=== PATIENT | male | born 1965 | race Two or more races ===

== ENCOUNTER 2024-03-21 10:25 | Outpatient (AMB) | payer MEDICAID, SELFPAY ==
[2024-03-21 10:48] VITALS: BP 127/78; PULSE 95; RESP 18; TEMP 36.5; O2SAT 98; BMI 29.9
--- NOTE | 2024-03-21 10:48 | PD.ORTHCLVIS ---
Vital signs 03/21/24 10:48 Height 1.68 m Height Method Stated Weight 84.368 kg Weight Measurement Method Standing Scale BMI 29.9 BP 127/78 Blood Pressure Source Automatic Cuff Blood Pressure Location Right Upper Arm Position Sitting Respiration 18 Pulse 95 Pulse Source Monitor Temp 97.7 F Temp Source Temporal Artery Scan Pulse Oximetry (%) 98 Oxygen Delivery Method Room Air Med/Allergies Allergies & Medications Allergies No Known Allergies Allergy (Verified 03/21/24 10:55) Medication Reconciliation benazepril 10 mg tablet 10 mg PO QDAY 03/10/24 [History Confirmed 03/21/24] dapagliflozin propanediol 5 mg tablet (Farxiga) 5 mg PO QDAY 03/10/24 [History Confirmed 03/21/24] hydrocodone 10 mg-acetaminophen 325 mg tablet 1 tab PO BID PRN Pain 03/10/24 [History Confirmed 03/21/24] metformin 1,000 mg tablet 1,000 mg PO BID 03/10/24 [History Confirmed 03/21/24] semaglutide 0.25 mg or 0.5 mg (2 mg/3 mL) subcutaneous pen injector (Ozempic) 0.5 mg subcut QWEEK 03/10/24 [History Confirmed 03/21/24] acetaminophen 500 mg tablet (Acetaminophen Extra Strength) 1,000 mg (2 x 500 mg) PO Q6H PRN pain #90 tabs 03/16/24 [Rx Confirmed 03/21/24] aspirin 81 mg tablet,delayed release 81 mg PO BID #60 tabs 03/16/24 [Rx Confirmed 03/21/24] doxycycline hyclate 100 mg tablet 100 mg PO BID #14 tabs 03/16/24 [Rx Confirmed 03/21/24] gabapentin 300 mg capsule 300 mg PO .qhs #30 caps 03/16/24 [Rx Confirmed 03/21/24] sennosides 8.6 mg-docusate sodium 50 mg tablet (Senna-S) 1 tab-cap PO QDAY #30 tabs 03/16/24 [Rx Confirmed 03/21/24] cyclobenzaprine 5 mg tablet 5 mg PO TID PRN muscle spasm #60 tabs 03/21/24 [Rx Confirmed 03/21/24] ibuprofen 800 mg tablet 800 mg PO Q8H PRN pain #60 tabs 03/21/24 [Rx Confirmed 03/21/24] oxycodone 5 mg tablet 5 mg PO Q6H PRN pain #28 tabs 03/21/24 [Rx Confirmed 03/21/24] Subjective Visit Visit for: follow up visit and hip (LEFT) Immunization / Flu Flu Vaccine in the Last 12 Months: No Flu Vaccine Exclusion Criteria: No Exclusion Criteria History of Present Illness Chief complaint: Left hip pain Marc is a pleasant 58-year-old male status post left total hip replacement. He had some pain we brought him in. We discussed that the pain is more than he thought. He is able to walk Pain Pain level (0-10): 5 Pain duration: ALL DAY Pain location: inside (medial) Pain quality: aching Pain timing: night and increases with activity Associated signs & symptoms: numbness and stiffness Ambulatory data Ambulatory device: walker Treatments Improvement with previous injections: No Improvement with PT: No Improvement with NSAIDS: no Review of Systems Review of Systems: All systems negative unless otherwise noted in HPI. Exam Exam Patient is in no acute distress and is cooperative with the examination today. Patient has a normal mood and affect. Breathing is nonlabored. In no respiratory distress. Bilateral extremities were evaluated and demonstrates sensation intact to light touch. Palpable pedal pulses are present. No significant edema is present. Left hip incision is clean dry and intact. He has minimal pain with logroll Lower legs are equal Assessment and Plan Problem List (1) Pain in left hip: Status: Acute (2) Avascular necrosis of bone of left hip: Status: Acute Plan: Patient is doing well status post left total hip replacement. He is doing fine after left total hip replacement. We gave him refills and started him on a muscle relaxer. His legs are equal. Will get new x-rays. We will see him in 1 week as scheduled Office Procedures GNS Level of Care Nursing/Assessment Patient Status: Established Patient Nursing Assessment/Reassesment: Medication Reconciliation, Update PMH in EMR and Vital Signs Coordination of Care: Complex Care and Chronic Disease 1-5, Education Complex Pt/Fam, Consent,records obtained, informed consent, Results/Orders obtained and Staff clarify orders Special Needs: Language special needs Established Patient Charge Established Patient Point Assignment: 95 Established Patient Point Charge: EP Level 3 (80-115) Past Medical History Past Medical History Have you ever been diagnosed with any of the following: Neurological Problems Seizures: No Cardiology Problems Congestive Heart Failure: No Hypertension: Yes Respiratory Problems Chronic Obstructive Pulmonary Disease (COPD): No Smoking: No Smoking Exposure: No Stomache/Intestinal Problems Hepatitis: No Genital/Urinary Problems Renal Disease: No Musculoskeletal Problems Arthritis: Yes Endocrine Problems Diabetes Mellitus Type 1: No Diabetes Mellitus Type 2: Yes Other Problems Hospitalization: No Shingles: No Blood Transfusions: No Blood Transfusion Reaction: No Anesthesia Reactions: No Organ Transplant: No MRSA: No Chicken Pox: Yes Measles: Yes Mumps: Yes Clostridium Difficile: No Cancer: No
== END 2024-03-21 10:45 | disposition home or self-care (01) ==
LOC: HODSRG 10:25
PROVIDERS: PCP Physician Assistant; Referring Provider Physician Assistant; Supervising Provider Orthopaedic Surgery Adult Reconstructive Orthopaedic Surgery; Visit Provider Orthopaedic Surgery Adult Reconstructive Orthopaedic Surgery
DX: M25.552 Pain in left hip (principal); M87.88 Other osteonecrosis, other site; Z96.642 Presence of left artificial hip joint; I10 Essential (primary) hypertension
CPT/HCPCS: 99213; G0463

== ENCOUNTER 2024-03-31 13:21 | Outpatient (AMB) | payer MEDICAID, SELFPAY ==
[2024-03-31 13:35] VITALS: BP 121/74; PULSE 79; RESP 18; TEMP 36.1; O2SAT 97; BMI 31.0
--- NOTE | 2024-03-31 13:35 | PD.ORTHCLVIS ---
Vital signs 03/31/24 13:35 Height 1.68 m Height Method Stated Weight 87.628 kg Weight Measurement Method Standing Scale BMI 31.0 BP 121/74 Blood Pressure Source Automatic Cuff Blood Pressure Location Right Upper Arm Position Sitting Respiration 18 Pulse 79 Pulse Source Monitor Temp 97.0 F Temp Source Temporal Artery Scan Pulse Oximetry (%) 97 Oxygen Delivery Method Room Air Med/Allergies Allergies & Medications Allergies No Known Allergies Allergy (Verified 03/31/24 13:36) Medication Reconciliation benazepril 10 mg tablet 10 mg PO QDAY 03/10/24 [History Confirmed 03/31/24] dapagliflozin propanediol 5 mg tablet (Farxiga) 5 mg PO QDAY 03/10/24 [History Confirmed 03/31/24] hydrocodone 10 mg-acetaminophen 325 mg tablet 1 tab PO BID PRN Pain 03/10/24 [History Confirmed 03/31/24] metformin 1,000 mg tablet 1,000 mg PO BID 03/10/24 [History Confirmed 03/31/24] semaglutide 0.25 mg or 0.5 mg (2 mg/3 mL) subcutaneous pen injector (Ozempic) 0.5 mg subcut QWEEK 03/10/24 [History Confirmed 03/31/24] aspirin 81 mg tablet,delayed release 81 mg PO BID #60 tabs 03/16/24 [Rx Confirmed 03/31/24] doxycycline hyclate 100 mg tablet 100 mg PO BID #14 tabs 03/16/24 [Rx Confirmed 03/31/24] gabapentin 300 mg capsule 300 mg PO .qhs #30 caps 03/16/24 [Rx Confirmed 03/31/24] sennosides 8.6 mg-docusate sodium 50 mg tablet (Senna-S) 1 tab-cap PO QDAY #30 tabs 03/16/24 [Rx Confirmed 03/31/24] cyclobenzaprine 5 mg tablet 5 mg PO TID PRN muscle spasm #60 tabs 03/21/24 [Rx Confirmed 03/31/24] ibuprofen 800 mg tablet 800 mg PO Q8H PRN pain #60 tabs 03/21/24 [Rx Confirmed 03/31/24] acetaminophen 500 mg tablet (Acetaminophen Extra Strength) 1,000 mg (2 x 500 mg) PO Q6H PRN pain #90 tabs 03/23/24 [Rx Confirmed 03/31/24] oxycodone 5 mg tablet 5 mg PO Q6H PRN pain #28 tabs 03/31/24 [Rx] Subjective Visit Visit for: follow up visit and hip (LEFT) Immunization / Flu Flu Vaccine in the Last 12 Months: No Flu Vaccine Exclusion Criteria: Refused by Patient History of Present Illness Chief complaint: FOLLOW UP LEFT HIP TKA Patient is 2 weeks status post left total hip replacement. His incision looks great. He reports the pain is subsided quite a bit. He is walking with a walker very comfortably Pain Pain level (0-10): 2 Pain duration: ON/OFF Pain location: inside (medial) Pain quality: aching Ambulatory data Ambulatory device: walker Treatments Improvement with previous injections: No Improvement with PT: No Improvement with NSAIDS: no Review of Systems Review of Systems: All systems negative unless otherwise noted in HPI. Exam Exam Patient is in no acute distress and is cooperative with the examination today. Patient has a normal mood and affect. Breathing is nonlabored. In no respiratory distress. Bilateral extremities were evaluated and demonstrates sensation intact to light touch. Palpable pedal pulses are present. No significant edema is present. Left hip incision is clean dry and intact. He has minimal pain with logroll Lower legs are equal Assessment and Plan Problem List (1) Pain in left hip: Status: Acute (2) Avascular necrosis of bone of left hip: Status: Acute Plan: Patient is doing well status post left total hip replacement. He is doing fine after left total hip replacement. The patient is doing well and we gave him a refill on his pain medication. He should start outpatient physical therapy and we will see him in 4 to 6 weeks. In 4 Office Procedures GNS Level of Care Nursing/Assessment Patient Status: Established Patient Nursing Assessment/Reassesment: Medication Reconciliation, Update PMH in EMR and Vital Signs Coordination of Care: Complex Care and Chronic Disease 1-5, Education Complex Pt/Fam, Consent,records obtained, informed consent, 1 Ins Authorization, Results/Orders obtained and Staff clarify orders Special Needs: Language special needs Established Patient Charge Established Patient Point Assignment: 110 Established Patient Point Charge: EP Level 3 (80-115) Past Medical History Past Medical History Have you ever been diagnosed with any of the following: Neurological Problems Seizures: No Cardiology Problems Congestive Heart Failure: No Hypertension: Yes Respiratory Problems Chronic Obstructive Pulmonary Disease (COPD): No Smoking: No Smoking Exposure: No Stomache/Intestinal Problems Hepatitis: No Genital/Urinary Problems Renal Disease: No Musculoskeletal Problems Arthritis: Yes Endocrine Problems Diabetes Mellitus Type 1: No Diabetes Mellitus Type 2: Yes Other Problems Hospitalization: No Shingles: No Blood Transfusions: No Blood Transfusion Reaction: No Anesthesia Reactions: No Organ Transplant: No MRSA: No Chicken Pox: Yes Measles: Yes Mumps: Yes Clostridium Difficile: No Cancer: No
== END 2024-03-31 14:01 | disposition home or self-care (01) ==
LOC: HODSRG 13:21
PROVIDERS: PCP Physician Assistant; Referring Provider Physician Assistant; Supervising Provider Orthopaedic Surgery Adult Reconstructive Orthopaedic Surgery; Visit Provider Orthopaedic Surgery Adult Reconstructive Orthopaedic Surgery
DX: M25.552 Pain in left hip (principal); M87.88 Other osteonecrosis, other site; Z96.652 Presence of left artificial knee joint; I10 Essential (primary) hypertension
CPT/HCPCS: 99213; G0463

== ENCOUNTER → 2024-05-05 | Outpatient (CLI) | payer MEDICAID, SELFPAY ==
--- NOTE | 2024-05-05 | XR_ITS ---
Examination:Left hip AP, lateral, AP pelvis 3 views Technique: Hip AP lateral, AP pelvis, 3 views Exam date and time:May 05, 2024 1324 hours INDICATIONS: Status post left hip replacement 2 months ago FINDINGS: Moderate osteopenia Total left arthroplasty. Satisfactory alignment No definitive the prosthetic components Mild to moderate right hip osteoarthritis bones of the pelvis intact IMPRESSION: Total left hip arthroplasty with satisfactory alignment.
== END | disposition home or self-care (01) ==
PROVIDERS: PCP Physician Assistant; Referring Provider Orthopaedic Surgery Adult Reconstructive Orthopaedic Surgery; Visit Provider Orthopaedic Surgery Adult Reconstructive Orthopaedic Surgery
DX: M16.12 Unilateral primary osteoarthritis, left hip (principal); Z96.642 Presence of left artificial hip joint
CPT/HCPCS: 73502

== ENCOUNTER 2024-05-12 08:38 | Outpatient (AMB) | payer MEDICAID, SELFPAY ==
[2024-05-12 09:07] VITALS: BP 153/82; PULSE 70; RESP 18; TEMP 36.3; O2SAT 94; BMI 30.1
--- NOTE | 2024-05-12 09:07 | PD.ORTHCLVIS ---
Vital signs 05/12/24 09:07 Height 1.68 m Height Method Stated Weight 84.935 kg Weight Measurement Method Standing Scale BMI 30.1 BP 153/82 H Blood Pressure Source Automatic Cuff Blood Pressure Location Left Upper Arm Position Sitting Respiration 18 Pulse 70 Pulse Source Monitor Temp 97.3 F Temp Source Temporal Artery Scan Pulse Oximetry (%) 94 L Oxygen Delivery Method Room Air Med/Allergies Allergies & Medications Allergies No Known Allergies Allergy (Verified 05/12/24 09:10) Medication Reconciliation benazepril 10 mg tablet 10 mg PO QDAY 03/10/24 [History Confirmed 05/12/24] dapagliflozin propanediol 5 mg tablet (Farxiga) 5 mg PO QDAY 03/10/24 [History Confirmed 05/12/24] hydrocodone 10 mg-acetaminophen 325 mg tablet 1 tab PO BID PRN Pain 03/10/24 [History Confirmed 05/12/24] metformin 1,000 mg tablet 1,000 mg PO BID 03/10/24 [History Confirmed 05/12/24] semaglutide 0.25 mg or 0.5 mg (2 mg/3 mL) subcutaneous pen injector (Ozempic) 0.5 mg subcut QWEEK 03/10/24 [History Confirmed 05/12/24] aspirin 81 mg tablet,delayed release 81 mg PO BID #60 tabs 03/16/24 [Rx Confirmed 05/12/24] doxycycline hyclate 100 mg tablet 100 mg PO BID #14 tabs 03/16/24 [Rx Confirmed 05/12/24] gabapentin 300 mg capsule 300 mg PO .qhs #30 caps 03/16/24 [Rx Confirmed 05/12/24] sennosides 8.6 mg-docusate sodium 50 mg tablet (Senna-S) 1 tab-cap PO QDAY #30 tabs 03/16/24 [Rx Confirmed 05/12/24] cyclobenzaprine 5 mg tablet 5 mg PO TID PRN muscle spasm #60 tabs 03/21/24 [Rx Confirmed 05/12/24] ibuprofen 800 mg tablet 800 mg PO Q8H PRN pain #60 tabs 03/21/24 [Rx Confirmed 05/12/24] acetaminophen 500 mg tablet (Acetaminophen Extra Strength) 1,000 mg (2 x 500 mg) PO Q6H PRN pain #90 tabs 03/23/24 [Rx Confirmed 05/12/24] oxycodone 5 mg tablet 5 mg PO Q6H PRN pain #28 tabs 03/31/24 [Rx Confirmed 05/12/24] Exam Exam Patient is in no acute distress and is cooperative with the examination today. Patient has a normal mood and affect. Breathing is nonlabored. In no respiratory distress. Bilateral extremities were evaluated and demonstrates sensation intact to light touch. Palpable pedal pulses are present. No significant edema is present. Left hip incision is clean dry and intact. He has minimal pain with logroll Leg lengths are equal X-rays from 05/05/2024 Demonstrates a cementless total Hip replacement in good alignment position Assessment and Plan Problem List (1) Pain in left hip: Status: Acute Plan: Patient is doing well status post left total hip replacement. His x-rays look great. He should work on getting rid of the cane. Will see him in 6 weeks for repeat evaluation (2) Avascular necrosis of bone of left hip: Status: Acute Office Procedures GNS Level of Care Nursing/Assessment Patient Status: Established Patient Nursing Assessment/Reassesment: Medication Reconciliation, Update PMH in EMR and Vital Signs Coordination of Care: Complex Care and Chronic Disease 1-5, Education Complex Pt/Fam, Consent,records obtained, informed consent, Lab and Imaging orders, Results/Orders obtained and Staff clarify orders Special Needs: Language special needs Established Patient Charge Established Patient Point Assignment: 110 Established Patient Point Charge: EP Level 3 (80-115) MA Intake Visit Data Collection New Patient or Established: Established Patient (seen at [facility] within 3 years) Reason for Visit:: XRAY RESULTS/LEFT HIP REPLACEMENT F/U Seen by Clinical Staff ONLY (RN/MA): No Label Remover Required: Yes PCP or OBGYN visit in last 3 months: Yes Hx Now: No Do You Feel Safe at Home: Yes Authorities Contacted: N/A Questionairres Past Medical History Past Medical History Have you ever been diagnosed with any of the following: Neurological Problems Seizures: No Cardiology Problems Congestive Heart Failure: No Hypertension: Yes Respiratory Problems Chronic Obstructive Pulmonary Disease (COPD): No Smoking: No Smoking Exposure: No Stomache/Intestinal Problems Hepatitis: No Genital/Urinary Problems Renal Disease: No Musculoskeletal Problems Arthritis: Yes Endocrine Problems Diabetes Mellitus Type 1: No Diabetes Mellitus Type 2: Yes Other Problems Hospitalization: No Shingles: No Blood Transfusions: No Blood Transfusion Reaction: No Anesthesia Reactions: No Organ Transplant: No MRSA: No Chicken Pox: Yes Measles: Yes Mumps: Yes Clostridium Difficile: No Cancer: No Subjective Visit Visit for: follow up visit, hip (LEFT) and x-rays (RESULTS) Immunization / Flu Flu Vaccine in the Last 12 Months: Yes Flu Vaccine Exclusion Criteria: Already Received History of Present Illness Chief complaint: LEFT HIP PAIN Marc is doing well status post left total hip replacement. He reports minimal pain. He is still using a cane as he just got rid of the walker 1 week ago. Pain Pain level (0-10): 1 Pain duration: CONSTANT Pain location: other (specify) (HIP) Pain quality: burning and tingling Associated signs & symptoms: none Ambulatory data Ambulatory device: cane Treatments Improvement with previous injections: No Improvement with PT: No Improvement with NSAIDS: no Review of Systems Review of Systems: All systems negative unless otherwise noted in HPI.
== END 2024-05-12 09:26 | disposition home or self-care (01) ==
PROVIDERS: PCP Physician Assistant; Referring Provider Physician Assistant; Supervising Provider Orthopaedic Surgery Adult Reconstructive Orthopaedic Surgery; Visit Provider Orthopaedic Surgery Adult Reconstructive Orthopaedic Surgery
DX: M25.552 Pain in left hip (principal); M87.88 Other osteonecrosis, other site; Z96.642 Presence of left artificial hip joint; I10 Essential (primary) hypertension
CPT/HCPCS: 99213; G0463

== ENCOUNTER 2024-05-15 15:00 | Outpatient (RCR) | payer MEDICAID, SELFPAY ==
--- NOTE | 2024-04-20 13:16 | PT.OIERPT ---
PT OP Initial Eval Patient Information Outpatient Physical Therapy Treatment Date: 04/20/24 Visit Reasons: Left KRYSTIAN Medical Diagnosis: M25.552 M87.052 Treatment Dx #1: L hip pain Treatment Dx #2: Dec L hip ROM Start of Care: 04/20/24 Date of Onset: 03/15/24 Smoking Status Smoking Status: Never smoker Initial Assessment Subjective: Pt is 58 yr old mozambican speaking male s/p L KRYSTIAN presents ambulating with FWW and reports low pain level. He is ambulating limited community distances with the FWW. Objective: HIp AROM: Strength: Flexion: 90 deg 3/5 Abd: 30 deg 3-/5 SLR: 30 deg Gait: mild limp on L foot, carries FWW between steps Assessment: Pt presentation consistent with post op L KRYSTIAN with decreased ROM, strength and WB tolerance on L LE. Pt requires skilled therapy to meet goals and has good rehab potential. He ambulates with good step length using cane and steady balance and will wean from FWW as tolerated. 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 Ind with HEP 2. Improved SLR to 45 deg x10 3. Pt will ambulate community distances with symmetrical gait pattern without assistive device if safe 4. Improved strength to 4/5 in all planes Treatment Plan ? 1. Manual therapy ? 2. Therex ? 3. Modalities as indicated, moist heat, ice, estim Frequency and Duration: 2x a week for up to 18 visits Certification Dates: 04/20/24 to 07/17/24 Procedure Charges OP PT Eval Mod Complex 30 minutes: Yes
--- NOTE | 2024-04-25 17:39 | PT.ODAYNRPT ---
PT Outpatient Daily Note OP Daily Note Outpatient Physical Therapy Treatment Date: 04/25/24 Visit Reasons: Left KRYSTIAN Subjective: pt. reports minimal pain with house activities Objective: see flowsheet for ther-ex Assessment: low pain level with ther-ex Plan: continue PT per POC Length of Time (minutes) of Treatment: 30 Minutes Procedure Charges Therapeutic Exercise 30 minutes: Yes
--- NOTE | 2024-04-27 14:24 | PT.ODAYNRPT ---
PT Outpatient Daily Note OP Daily Note Outpatient Physical Therapy Treatment Date: 04/27/24 Visit Reasons: Left KRYSTIAN Subjective: Ambulating with cane with low hip pain but the low back hurts Objective: See F/S for therex Gait: lateral sway with dec WB on L Assessment: Pt has improved hip strength with SLR but ambulates with lateral sway and decreased stance time on L LE. Plan: Continue per POC Length of Time (minutes) of Treatment: 30 Minutes Procedure Charges Therapeutic Exercise 30 minutes: Yes
--- NOTE | 2024-05-01 15:11 | PT.ODAYNRPT ---
PT Outpatient Daily Note OP Daily Note Outpatient Physical Therapy Treatment Date: 05/01/24 Visit Reasons: Left KRYSTIAN Subjective: No new complaints, pt continues to use cane. Objective: Please see flow sheet for ther ex list. Assessment: Continued with focus on restoring strength and ROm of L hip. Plan: Continue with POC. Length of Time (minutes) of Treatment: 30 Minutes Procedure Charges Therapeutic Exercise 30 minutes: Yes
--- NOTE | 2024-05-03 15:56 | PT.ODAYNRPT ---
PT Outpatient Daily Note OP Daily Note Outpatient Physical Therapy Treatment Date: 05/03/24 Visit Reasons: Left KRYSTIAN Subjective: Ambulating with cane with low hip pain but the low back hurts. Some L hip soreness after last visit Objective: See F/S for therex Gait: lateral sway with dec WB on L Assessment: Pt has improved hip strength with SLR and step ups but ambulates with lateral sway and decreased stance time on L LE. Plan: Continue per POC Length of Time (minutes) of Treatment: 30 Minutes Procedure Charges Therapeutic Exercise 30 minutes: Yes
--- NOTE | 2024-05-08 16:04 | PT.ODAYNRPT ---
PT Outpatient Daily Note OP Daily Note Outpatient Physical Therapy Treatment Date: 05/08/24 Visit Reasons: Left KRYSTIAN Subjective: Pt reports L hip is doing better. Objective: Please see flow sheet for ther ex list. 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 Plan: Continue with POC. Length of Time (minutes) of Treatment: 30 Minutes Procedure Charges Therapeutic Exercise 30 minutes: Yes
--- NOTE | 2024-05-15 15:59 | PT.ODAYNRPT ---
PT Outpatient Daily Note OP Daily Note Outpatient Physical Therapy Treatment Date: 05/15/24 Visit Reasons: Left KRYSTIAN Subjective: Pt reports hip is doing better notices it feel stronger and getting easier to manage steps and stairs. Objective: Please see flow sheet for ther ex list. Assessment: Pt demonstrates improved control with ascending and descending steps no ELECTRICIAN TELEPHONE. Plan: Continue with pOC. Length of Time (minutes) of Treatment: 30 Minutes Procedure Charges Therapeutic Exercise 30 minutes: Yes
== END 2024-05-16 23:59 | disposition home or self-care (01) ==
LOC: CPTX 15:00
PROVIDERS: PCP Orthopaedic Surgery Adult Reconstructive Orthopaedic Surgery; Referring Provider Orthopaedic Surgery Adult Reconstructive Orthopaedic Surgery; Visit Provider Orthopaedic Surgery Adult Reconstructive Orthopaedic Surgery
DX: M25.552 Pain in left hip (principal); Z96.642 Presence of left artificial hip joint; M87.052 Idiopathic aseptic necrosis of left femur
CPT/HCPCS: 97110; 97162

== ENCOUNTER 2024-06-08 14:00 | Outpatient (RCR) | payer MEDICAID, SELFPAY ==
--- NOTE | 2024-05-19 15:34 | PT.ODAYNRPT ---
PT Outpatient Daily Note OP Daily Note Outpatient Physical Therapy Treatment Date: 05/19/24 Visit Reasons: Left KRYSTIAN Subjective: Pt reports L hip is feeling better, continues to use SPC for ambulation. Objective: Please see flow sheet for ther ex list. Assessment: Progressing interventions to work on strength and dynamic balance, no complaints. Plan: Continue progressing. Length of Time (minutes) of Treatment: 30 Minutes Procedure Charges Therapeutic Exercise 30 minutes: Yes
--- NOTE | 2024-05-22 15:56 | PT.ODAYNRPT ---
PT Outpatient Daily Note OP Daily Note Outpatient Physical Therapy Treatment Date: 05/22/24 Visit Reasons: Left KRYSTIAN Subjective: Overall better, using cane Objective: See F/S for therex Assessment: Pt able to ambulate without cane with some lateral sway which should improve with practice. Plan: Continue per POC Length of Time (minutes) of Treatment: 30 Minutes Procedure Charges Therapeutic Exercise 30 minutes: Yes
--- NOTE | 2024-05-24 15:32 | PT.ODAYNRPT ---
PT Outpatient Daily Note OP Daily Note Outpatient Physical Therapy Treatment Date: 05/24/24 Visit Reasons: Left KRYSTIAN Subjective: Pt reports hip is doing better, no longer using cane. Objective: Please see flow sheet for ther ex list. 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 Plan: Continue with POC. Length of Time (minutes) of Treatment: 30 Minutes Procedure Charges Therapeutic Exercise 30 minutes: Yes
--- NOTE | 2024-05-29 18:07 | PT.ODAYNRPT ---
PT Outpatient Daily Note OP Daily Note Outpatient Physical Therapy Treatment Date: 05/29/24 Visit Reasons: Left KRYSTIAN Subjective: Overall better, not using cane anymore Objective: See F/S for therex Assessment: Pt able to ambulate without cane with some lateral sway which should improve with practice. Plan: Continue per POC Length of Time (minutes) of Treatment: 30 Minutes Procedure Charges Therapeutic Exercise 30 minutes: Yes
--- NOTE | 2024-05-31 15:43 | PT.ODAYNRPT ---
PT Outpatient Daily Note OP Daily Note Outpatient Physical Therapy Treatment Date: 05/31/24 Visit Reasons: Left KRYSTIAN Subjective: Pt reports progress with hip but progress is slow. Pt mentioned he has pain with riding stationary bicycle and during squat exercise mentioned pain in L lumbar region and hip. Objective: Please see flow sheet for ther ex list. Assessment: Regressed interventions and perfored STM to L l/s region and L hip and along ITB. Pt presents with increase muscle tone on L l/s. Plan: Continue with pOC. Length of Time (minutes) of Treatment: 30 Minutes Procedure Charges Therapeutic Exercise 30 minutes: Yes
--- NOTE | 2024-06-06 15:07 | PT.ODAYNRPT ---
PT Outpatient Daily Note OP Daily Note Outpatient Physical Therapy Treatment Date: 06/06/24 Visit Reasons: Left KRYSTIAN Subjective: Overall better, not using cane anymore but limps Objective: See F/S for therex Assessment: Pt able to ambulate without cane with some lateral sway which should improve with practice. Plan: Continue per POC Length of Time (minutes) of Treatment: 30 Minutes Procedure Charges Therapeutic Exercise 30 minutes: Yes
--- NOTE | 2024-06-08 16:18 | PT.ODS1RPT ---
PT OP Progress/Discharge Note Date of Service: 06/08/24 Progress Note/DC Note Progress Note/Discharge Note: Progress Note Patient Information Visit Reasons: Left KRYSTIAN Service Continue Service or Discharge: Continue Service Status Subjective: Overall better, not using cane anymore but limps. Doesn't think he can work yet. Objective: See F/S for therex Strength: L hip flexion: 90 deg 4/5 SLR: 30 deg Abduction: 35 deg 4-/5 Gait: slightly unsymmetrical with lateral sway Assessment: Pt has attended 12/12 sessions with good progress with therapy goals. Pt able to ambulate without cane with some lateral sway which should improve with continued therapy. Pt has met hip strength goals but SLR ROM is lacking to meet goal. She would benefit from skilled therapy to meet remaining goals. Plan: Request additional visits x8 in order to continue per POC Procedure Charges Therapeutic Exercise 30 minutes: Yes
== END 2024-06-16 23:59 | disposition home or self-care (01) ==
LOC: CPTX 14:00
PROVIDERS: PCP Orthopaedic Surgery Adult Reconstructive Orthopaedic Surgery; Referring Provider Orthopaedic Surgery Adult Reconstructive Orthopaedic Surgery; Visit Provider Orthopaedic Surgery Adult Reconstructive Orthopaedic Surgery
DX: M25.552 Pain in left hip (principal); M87.052 Idiopathic aseptic necrosis of left femur; Z96.642 Presence of left artificial hip joint
CPT/HCPCS: 97110

== ENCOUNTER 2024-06-23 08:55 | Outpatient (AMB) | payer MEDICAID, SELFPAY ==
[2024-06-23 09:21] VITALS: BP 112/70; PULSE 77; RESP 19; TEMP 36.1; O2SAT 97; BMI 30.2
--- NOTE | 2024-06-23 09:21 | ORTHONT_ITS ---
Vital signs 06/23/24 09:21 Height 1.68 m Height Method Stated Weight 85.304 kg Weight Measurement Method Standing Scale BMI 30.2 BP 112/70 Blood Pressure Source Automatic Cuff Blood Pressure Location Right Upper Arm Position Sitting Respiration 19 Pulse 77 Pulse Source Monitor Temp 97 F Temp Source Temporal Artery Scan Pulse Oximetry (%) 97 Oxygen Delivery Method Room Air Med/Allergies Allergies & Medications Allergies No Known Allergies Allergy (Verified 06/23/24 09:22) Medication Reconciliation benazepril 10 mg tablet 10 mg PO QDAY 03/10/24 [History Confirmed 06/23/24] dapagliflozin propanediol 5 mg tablet (Farxiga) 5 mg PO QDAY 03/10/24 [History Confirmed 06/23/24] hydrocodone 10 mg-acetaminophen 325 mg tablet 1 tab PO BID PRN Pain 03/10/24 [History Confirmed 06/23/24] metformin 1,000 mg tablet 1,000 mg PO BID 03/10/24 [History Confirmed 06/23/24] semaglutide 0.25 mg or 0.5 mg (2 mg/3 mL) subcutaneous pen injector (Ozempic) 0.5 mg subcut QWEEK 03/10/24 [History Confirmed 06/23/24] aspirin 81 mg tablet,delayed release 81 mg PO BID #60 tabs 03/16/24 [Rx Confirmed 06/23/24] doxycycline hyclate 100 mg tablet 100 mg PO BID #14 tabs 03/16/24 [Rx Confirmed 06/23/24] gabapentin 300 mg capsule 300 mg PO .qhs #30 caps 03/16/24 [Rx Confirmed 06/23/24] sennosides 8.6 mg-docusate sodium 50 mg tablet (Senna-S) 1 tab-cap PO QDAY #30 tabs 03/16/24 [Rx Confirmed 06/23/24] cyclobenzaprine 5 mg tablet 5 mg PO TID PRN muscle spasm #60 tabs 03/21/24 [Rx Confirmed 06/23/24] ibuprofen 800 mg tablet 800 mg PO Q8H PRN pain #60 tabs 03/21/24 [Rx Confirmed 06/23/24] acetaminophen 500 mg tablet (Acetaminophen Extra Strength) 1,000 mg (2 x 500 mg) PO Q6H PRN pain #90 tabs 03/23/24 [Rx Confirmed 06/23/24] oxycodone 5 mg tablet 5 mg PO Q6H PRN pain #28 tabs 03/31/24 [Rx Confirmed 12/08] Exam Exam Patient is in no acute distress and is cooperative with the examination today. Patient has a normal mood and affect. Breathing is nonlabored. In no respiratory distress. Bilateral extremities were evaluated and demonstrates sensation intact to light touch. Palpable pedal pulses are present. No significant edema is present. Left hip incision is clean dry and intact. He has minimal pain with logroll Leg lengths are equal X-rays from 05/05/2024 Demonstrates a cementless total Hip replacement in good alignment position Assessment and Plan Problem List (1) Pain in left hip: Status: Acute Plan: Patient is doing well status post left total hip replacement. He is using no assistive device and has no pain. He is doing well (2) Avascular necrosis of bone of left hip: Status: Acute Office Procedures GNS Level of Care Nursing/Assessment Patient Status: Established Patient Nursing Assessment/Reassesment: Medication Reconciliation, Update PMH in EMR and Vital Signs Coordination of Care: Complex Care and Chronic Disease 1-5, Education Complex Pt/Fam, Consent,records obtained, informed consent, Results/Orders obtained and Staff clarify orders Special Needs: Language special needs Established Patient Charge Established Patient Point Assignment: 95 Established Patient Point Charge: EP Level 3 (80-115) MA Intake Visit Data Collection New Patient or Established: Established Patient (seen at [facility] within 3 years) Reason for Visit:: F/U HIP TKA Seen by Clinical Staff ONLY (RN/MA): No Verbal consent obtained for Telemed visit?: No Assistant Community Manager Required: Yes PCP or OBGYN visit in last 3 months: Yes Hx Now: No Do You Feel Safe at Home: Yes Authorities Contacted: N/A Questionairres Past Medical History Past Medical History Have you ever been diagnosed with any of the following: Neurological Problems Seizures: No Cardiology Problems Congestive Heart Failure: No Hypertension: Yes Respiratory Problems Chronic Obstructive Pulmonary Disease (COPD): No Smoking: No Smoking Exposure: No Stomache/Intestinal Problems Hepatitis: No Genital/Urinary Problems Renal Disease: No Musculoskeletal Problems Arthritis: Yes Endocrine Problems Diabetes Mellitus Type 1: No Diabetes Mellitus Type 2: Yes Other Problems Hospitalization: No Shingles: No Blood Transfusions: No Blood Transfusion Reaction: No Anesthesia Reactions: No Organ Transplant: No MRSA: No Chicken Pox: Yes Measles: Yes Mumps: Yes Clostridium Difficile: No Cancer: No Subjective Visit Visit for: follow up visit Immunization / Flu Flu Vaccine in the Last 12 Months: No Flu Vaccine Exclusion Criteria: No Exclusion Criteria History of Present Illness Chief complaint: Left hip pain Tran is doing well status post left total hip replacement. This was done 3 months ago. He is working with physical therapy and has no limp. He is very happy Personal History Occupation: UNEMPLOYED Red flag PMH: none BMI Counceling provided: No Pain Pain level (0-10): 0 Ambulatory data Ambulatory device: none Treatments Improvement with previous injections: No Improvement with PT: No Improvement with NSAIDS: no Review of Systems Review of Systems: All systems negative unless otherwise noted in HPI.
== END 2024-06-23 09:25 | disposition home or self-care (01) ==
LOC: HODSRG 08:55
PROVIDERS: PCP Physician Assistant; Referring Provider Physician Assistant; Supervising Provider Orthopaedic Surgery Adult Reconstructive Orthopaedic Surgery; Visit Provider Orthopaedic Surgery Adult Reconstructive Orthopaedic Surgery
DX: M25.552 Pain in left hip (principal); Z96.642 Presence of left artificial hip joint; M87.88 Other osteonecrosis, other site; I10 Essential (primary) hypertension; E11.9 Type 2 diabetes mellitus without complications
CPT/HCPCS: 99213; G0463

== ENCOUNTER 2025-01-11 14:03 | Outpatient (AMB) | payer MEDICAID, SELFPAY ==
[2025-01-11 14:26] VITALS: BP 98/62; PULSE 67; RESP 18; TEMP 36.3; O2SAT 96; BMI 29.4
--- NOTE | 2025-01-11 14:26 | ORTHONT_ITS ---
Vital signs 01/11/25 14:26 Height 1.68 m Height Method Stated Weight 83.121 kg Weight Measurement Method Standing Scale BMI 29.4 BP 98/62 Blood Pressure Source Automatic Cuff Blood Pressure Location Left Upper Arm Position Sitting Respiration 18 Pulse 67 Pulse Source Monitor Temp 97.4 F Temp Source Temporal Artery Scan Pulse Oximetry (%) 96 Oxygen Delivery Method Room Air Med/Allergies Allergies & Medications Allergies No Known Allergies Allergy (Verified 01/11/25 14:26) Medication Reconciliation metformin 1,000 mg tablet 1,000 mg PO BID 03/10/24 [History Confirmed 01/11/25] cyclobenzaprine 5 mg tablet 5 mg PO TID PRN muscle spasm #60 tabs 03/21/24 [Rx Confirmed 01/11/25] ibuprofen 800 mg tablet 800 mg PO Q8H PRN pain #60 tabs 03/21/24 [Rx Confirmed 01/11/25] acetaminophen 500 mg tablet (Acetaminophen Extra Strength) 1,000 mg (2 x 500 mg) PO Q6H PRN pain #90 tabs 03/23/24 [Rx Confirmed 01/11/25] Exam Exam Patient is in no acute distress and is cooperative with the examination today. Patient has a normal mood and affect. Breathing is nonlabored. In no respiratory distress. Bilateral extremities were evaluated and demonstrates sensation intact to light touch. Palpable pedal pulses are present. No significant edema is present. Left hip incision is clean dry and intact. He has minimal pain with logroll Leg lengths are equal X-rays from 05/05/2024 Demonstrates a cementless total Hip replacement in good alignment position Assessment and Plan Problem List (1) Pain in left hip: Status: Acute Plan: Patient is doing well status post left total hip replacement. He is using no assistive device and has no pain. He is doing well He has a lot of pain in his knees (2) Avascular necrosis of bone of left hip: Status: Acute Office Procedures GNS Level of Care Nursing/Assessment Patient Status: Established Patient Nursing Assessment/Reassesment: Medication Reconciliation, Update PMH in EMR and Vital Signs Coordination of Care: Complex Care and Chronic Disease 1-5, Education Complex Pt/Fam, Consent,records obtained, informed consent, Results/Orders obtained and Staff clarify orders Established Patient Charge Established Patient Point Assignment: 95 Established Patient Point Charge: EP Level 3 (80-115) MA Intake Visit Data Collection New Patient or Established: Established Patient (seen at [facility] within 3 years) Reason for Visit:: F/U HIP TKA Seen by Clinical Staff ONLY (RN/MA): No Verbal consent obtained for Telemed visit?: No Community Health Advisor Required: Yes PCP or OBGYN visit in last 3 months: Yes Hx Now: No Do You Feel Safe at Home: Yes Authorities Contacted: N/A Questionairres Past Medical History Past Medical History Have you ever been diagnosed with any of the following: Neurological Problems Cerebrovascular Accident (CVA): No Transient Ischemic Attacks (TIA): No Dementia: No Alzheimer's Disease: No Parkinson's Disease: No Brain Tumor: No Meningitis: No Seizures: No Epilepsy: No Multiple Sclerosis: No Cerebral Palsy: No Amyotrophic Lateral Sclerosis (ALS/Merle Gehrig's): No Guillain-[place] Syndrome: No Spina Bifida: No Paralysis: No Peripheral Neuropathy: No Hernández's Palsy: No Subdural Hematoma: No Migraine: No Head Trauma: No Spinal Cord Injury: No Traumatic Brain Injury: No Cardiology Problems Myocardial Infarction: No Cardiac Arrhythmia: No Atrial Fibrillation: No Angina: No Heart Murmur: No Coronary Artery Disease: No Atherosclerotic Heart Disease: No Peripheral Vascular Disease: No Hypercholesterolemia: No Aneurysm: No Congestive Heart Failure: No Congenital Heart Disease: No Valvular Heart Disease: No Rheumatic Fever: No Cardiomyopathy: No Edema: No Pericarditis: No Cellulitis: No Deep Vein Thrombosis: No Hypertension: Yes Hypotension: No Varicose Veins: No Respiratory Problems Chronic Obstructive Pulmonary Disease (COPD): No Asthma: No Bronchitis: No Emphysema: No Pneumonia: No Pulmonary Fibrosis: No Tuberculosis: No Pulmonary Embolism: No Pulmonary Edema: No Sleep Apnea: No Respiratory Aspiration: No Dyspnea: No Orthopnea: No Hx Cough: No Cough: No Wheezing: No Chest Deformities: No Smoking: No Smoking Cessation Counseling: No Smoking Exposure: No Tobacco Use: No Clubbing: No Exposure to Respiratory Irritants: No Intubation: No Stomache/Intestinal Problems Liver Cancer: No Hepatitis: No Cirrhosis: No Pancreatic Cancer: No Pancreatitis: No Celiac Disease: No Gall Bladder Disease: No Gastrointestinal Bleed: No Esophageal Varices: No Garcia's Esophagus: No Colitis: No Ulcerative Colitis: No Diverticulitis: No Diverticulosis: No Ulcer: No Colorectal Cancer: No Irritable Bowel: No Crohn's Disease: No Obstructive Bowel: No Hiatal Hernia: No Hemorrhoids: No Gastroesophageal Reflux Disease: No Polyps: No Obesity: No Genital/Urinary Problems Chronic Kidney Disease: No Renal Disease: No Kidney Stones: No Polycystic Kidney Disease: No Neurogenic Bladder: No Inguinal Hernia: No Dialysis: No Prostate Cancer: No Benign Prostatic Hyperplasia: No Reproductive Problems Breast Cancer: No Fibroids: No Genital Herpes: No Gonorrhea: No Syphilis: No Testicular Cancer: No Musculoskeletal Problems Muscular Dystrophy: No Myasthenia Gravis: No Marfan's Syndrome: No Bone Cancer: No Arthritis: Yes Rheumatoid Arthritis: No Osteoporosis: No Degenerative Disk Disease: No Gout: No Scoliosis: No Carpal Tunnel Syndrome: No Fibromyalgia: No Head,Eye,Nose,Throat Problems Cataracts: No Glaucoma: No Blind: No Retinal Detachment: No Macular Degeneration: No Chronic Ear Infections: No Deafness: No Eye Prosthesis: No Endocrine Problems Diabetes Mellitus Type 1: No Diabetes Mellitus Type 2: Yes Hypoglycemia: No [place]'s Syndrome: No [place]'s Disease: No Hyperthyroidism: No Hypothyroidism: No Thyroid Cancer: No Parathyroid Disease: No Pituitary Disease: No Systemic Lupus Erythematosus: No Syndrome of Inappropriate Antidiuretic Hormone: No Adrenal Disease: No Graves' Disease: No Blood Problems Anemia: No Leukemia: No Hemophilia: No Thalassemia: No Sickle Cell Disease: No Clotting Problems: No Psychologic Problems Schizophrenia: No Recreational Drug Use: No Bipolar Disorder: No Depression: No Anxiety: No Behavior Problems: No Self-Mutilation: No Attention Deficit Disorder: No Attention Deficit Hyperactivity Disorder: No Depression: No Post Traumatic Stress Disorder: No Eating Disorder: No Other Problems Hospitalization: No Shingles: No Blood Transfusions: No Blood Transfusion Reaction: No Anesthesia Reactions: No Organ Transplant: No Chemotherapy: No Radiation Therapy: No Hyperbaric Therapy: No MRSA: No VRSA: No Vancomycin-Resistant Enterococci: No Human Immunodeficiency Virus (HIV): No Chicken Pox: Yes Measles: Yes Mumps: Yes Rubella (Syriac Measles): No Pertussis: No Klebsiella Pneumoniae Carbapenemase Producing Bacteria: No Clostridium Difficile: No Hepatitis A: No Hepatitis B: No Hepatitis C: No Communicable Disease: No Cancer: No Lung Cancer: No Surgical History Angioplasty: No Appendectomy: No Bariatric Surgery: No Breast Surgery: No Cancer Surgery: No Carotid Endarterectomy: No Cholecystectomy: No Colectomy: No Colostomy: No Coronary Artery Bypass Graft: No Valve Replacement: No Herniorrhaphy: No Total Hip Replacement: Yes (LEFT HIP) Pacemaker: No Sinus Surgery: No Splenectomy: No Thyroidectomy: No Ureter Stent: No Subjective Visit Visit for: follow up visit Immunization / Flu Flu Vaccine in the Last 12 Months: No Flu Vaccine Exclusion Criteria: No Exclusion Criteria History of Present Illness Chief complaint: Left hip pain Tran is doing well status post left total hip replacement. This was done 10 months ago. He is working with physical therapy and has no limp. He is very happy He has a lot of calf pain Personal History Occupation: UNEMPLOYED Red flag PMH: none BMI Counceling provided: No Pain Pain level (0-10): 0 Ambulatory data Ambulatory device: none Treatments Improvement with previous injections: No Improvement with PT: No Improvement with NSAIDS: no Review of Systems Review of Systems: All systems negative unless otherwise noted in HPI.
--- NOTE | 2025-01-11 14:38 | XR_ITS ---
Examination: Bilateral AP knees single view Left knee PA lateral axial 3 views TECHNIQUE: Bilateral AP knees standing single view Left knee standing PA flexion, standing lateral, axial left knee 3 views total 4 views Date and time: January 11, 2025 1505 hours INDICATIONS: Left knee pain beginning 3 months ago. FINDINGS: Mild to moderate left knee tricompartment osteoarthritis, most prominent patellofemoral joint No fracture Minimal osteoarthritis medial lateral joint spaces right knee IMPRESSION: Mild to moderate left knee tricompartment osteoarthritis, most prominent patellofemoral joint
--- NOTE | 2025-01-11 14:38 | XR_ITS ---
Examination:Left hip AP, lateral, AP pelvis 3 views Technique: Hip AP lateral, AP pelvis, 3 views Exam date and time:January 11, 2025 1549 hours INDICATIONS: Left hip surgery one year ago FINDINGS: Total left hip arthroplasty. Satisfactory alignment No fracture Moderate right hip osteoarthritis IMPRESSION: Total left hip arthroplasty with satisfactory alignment No loosening of the prosthetic components.
== END 2025-01-11 14:39 | disposition home or self-care (01) ==
LOC: HODSRG 14:03
PROVIDERS: Supervising Provider Orthopaedic Surgery Adult Reconstructive Orthopaedic Surgery; Visit Provider Orthopaedic Surgery Adult Reconstructive Orthopaedic Surgery
DX: M25.552 Pain in left hip (principal); M87.88 Other osteonecrosis, other site; M25.562 Pain in left knee; M25.561 Pain in right knee; M17.12 Unilateral primary osteoarthritis, left knee; Z96.642 Presence of left artificial hip joint; I10 Essential (primary) hypertension; E11.9 Type 2 diabetes mellitus without complications
CPT/HCPCS: 73502; 73564; 99213; G0463

== ENCOUNTER 2025-02-13 14:47 | Outpatient (AMB) | payer MEDICAID, SELFPAY ==
[2025-02-13 14:56] VITALS: BP 114/66; PULSE 73; RESP 18; TEMP 36.7; O2SAT 97; BMI 29.9
--- NOTE | 2025-02-13 14:56 | PD.ORTHCLVIS ---
Vital signs 02/13/25 14:56 Height 1.68 m Height Method Stated Weight 84.368 kg Weight Measurement Method Standing Scale BMI 29.9 BP 114/66 Blood Pressure Source Automatic Cuff Blood Pressure Location Left Upper Arm Position Sitting Respiration 18 Pulse 73 Pulse Source Monitor Temp 98.1 F Temp Source Temporal Artery Scan Pulse Oximetry (%) 97 Oxygen Delivery Method Room Air Med/Allergies Allergies & Medications Allergies No Known Allergies Allergy (Verified 02/13/25 14:56) Medication Reconciliation metformin 1,000 mg tablet 1,000 mg PO BID 03/10/24 [History Confirmed 02/13/25] cyclobenzaprine 5 mg tablet 5 mg PO TID PRN muscle spasm #60 tabs 03/21/24 [Rx Confirmed 02/13/25] ibuprofen 800 mg tablet 800 mg PO Q8H PRN pain #60 tabs 03/21/24 [Rx Confirmed 02/13/25] acetaminophen 500 mg tablet (Acetaminophen Extra Strength) 1,000 mg (2 x 500 mg) PO Q6H PRN pain #90 tabs 03/23/24 [Rx Confirmed 02/13/25] Exam Exam Patient is in no acute distress and is cooperative with the examination today. Patient has a normal mood and affect. Breathing is nonlabored. In no respiratory distress. Bilateral extremities were evaluated and demonstrates sensation intact to light touch. Palpable pedal pulses are present. No significant edema is present. Left hip incision is clean dry and intact. He has minimal pain with logroll Leg lengths are equal X-rays from December 2024 demonstrates a cementless total Hip replacement in good alignment position Assessment and Plan Problem List (1) Pain in left hip: Status: Acute Plan: Patient is doing well status post left total hip replacement. He is using no assistive device and has no pain. He is doing well He is doing very well. His knee pain has disappeared. Will see him in approximately 2 years for routine follow-up (2) Avascular necrosis of bone of left hip: Status: Acute Office Procedures GNS Level of Care Nursing/Assessment Patient Status: Established Patient Nursing Assessment/Reassesment: Medication Reconciliation, Update PMH in EMR and Vital Signs Coordination of Care: Complex Care and Chronic Disease 1-5, Education Complex Pt/Fam, Consent,records obtained, informed consent, Results/Orders obtained and Staff clarify orders Established Patient Charge Established Patient Point Assignment: 95 Established Patient Point Charge: EP Level 3 (80-115) MA Intake Visit Data Collection New Patient or Established: Established Patient (seen at [facility] within 3 years) Reason for Visit:: F/U HIP TKA Seen by Clinical Staff ONLY (RN/MA): No Verbal consent obtained for Telemed visit?: No Product Assurance Engineer Required: Yes PCP or OBGYN visit in last 3 months: Yes Hx Now: No Do You Feel Safe at Home: Yes Authorities Contacted: N/A Questionairres Past Medical History Past Medical History Have you ever been diagnosed with any of the following: Neurological Problems Cerebrovascular Accident (CVA): No Transient Ischemic Attacks (TIA): No Dementia: No Alzheimer's Disease: No Parkinson's Disease: No Brain Tumor: No Meningitis: No Seizures: No Epilepsy: No Multiple Sclerosis: No Cerebral Palsy: No Amyotrophic Lateral Sclerosis (ALS/Merle Gehrig's): No Guillain-[place] Syndrome: No Spina Bifida: No Paralysis: No Peripheral Neuropathy: No Hernández's Palsy: No Subdural Hematoma: No Migraine: No Head Trauma: No Spinal Cord Injury: No Traumatic Brain Injury: No Cardiology Problems Myocardial Infarction: No Cardiac Arrhythmia: No Atrial Fibrillation: No Angina: No Heart Murmur: No Coronary Artery Disease: No Atherosclerotic Heart Disease: No Peripheral Vascular Disease: No Hypercholesterolemia: No Aneurysm: No Congestive Heart Failure: No Congenital Heart Disease: No Valvular Heart Disease: No Rheumatic Fever: No Cardiomyopathy: No Edema: No Pericarditis: No Cellulitis: No Deep Vein Thrombosis: No Hypertension: Yes Hypotension: No Varicose Veins: No Respiratory Problems Chronic Obstructive Pulmonary Disease (COPD): No Asthma: No Bronchitis: No Emphysema: No Pneumonia: No Pulmonary Fibrosis: No Tuberculosis: No Pulmonary Embolism: No Pulmonary Edema: No Sleep Apnea: No Respiratory Aspiration: No Dyspnea: No Orthopnea: No Hx Cough: No Cough: No Wheezing: No Chest Deformities: No Smoking: No Smoking Cessation Counseling: No Smoking Exposure: No Tobacco Use: No Clubbing: No Exposure to Respiratory Irritants: No Intubation: No Stomache/Intestinal Problems Liver Cancer: No Hepatitis: No Cirrhosis: No Pancreatic Cancer: No Pancreatitis: No Celiac Disease: No Gall Bladder Disease: No Gastrointestinal Bleed: No Esophageal Varices: No Garcia's Esophagus: No Colitis: No Ulcerative Colitis: No Diverticulitis: No Diverticulosis: No Ulcer: No Colorectal Cancer: No Irritable Bowel: No Crohn's Disease: No Obstructive Bowel: No Hiatal Hernia: No Hemorrhoids: No Gastroesophageal Reflux Disease: No Polyps: No Obesity: No Genital/Urinary Problems Chronic Kidney Disease: No Renal Disease: No Kidney Stones: No Polycystic Kidney Disease: No Neurogenic Bladder: No Inguinal Hernia: No Dialysis: No Prostate Cancer: No Benign Prostatic Hyperplasia: No Reproductive Problems Breast Cancer: No Fibroids: No Genital Herpes: No Gonorrhea: No Syphilis: No Testicular Cancer: No Musculoskeletal Problems Muscular Dystrophy: No Myasthenia Gravis: No Marfan's Syndrome: No Bone Cancer: No Arthritis: Yes Rheumatoid Arthritis: No Osteoporosis: No Degenerative Disk Disease: No Gout: No Scoliosis: No Carpal Tunnel Syndrome: No Fibromyalgia: No Head,Eye,Nose,Throat Problems Cataracts: No Glaucoma: No Blind: No Retinal Detachment: No Macular Degeneration: No Chronic Ear Infections: No Deafness: No Eye Prosthesis: No Endocrine Problems Diabetes Mellitus Type 1: No Diabetes Mellitus Type 2: Yes Hypoglycemia: No Jenna's Syndrome: No [place]'s Disease: No Hyperthyroidism: No Hypothyroidism: No Thyroid Cancer: No Parathyroid Disease: No Pituitary Disease: No Systemic Lupus Erythematosus: No Syndrome of Inappropriate Antidiuretic Hormone: No Adrenal Disease: No Graves' Disease: No Blood Problems Anemia: No Leukemia: No Hemophilia: No Thalassemia: No Sickle Cell Disease: No Clotting Problems: No Psychologic Problems Schizophrenia: No Recreational Drug Use: No Bipolar Disorder: No Depression: No Anxiety: No Behavior Problems: No Self-Mutilation: No Attention Deficit Disorder: No Attention Deficit Hyperactivity Disorder: No Depression: No Post Traumatic Stress Disorder: No Eating Disorder: No Other Problems Hospitalization: No Shingles: No Blood Transfusions: No Blood Transfusion Reaction: No Anesthesia Reactions: No Organ Transplant: No Chemotherapy: No Radiation Therapy: No Hyperbaric Therapy: No MRSA: No VRSA: No Vancomycin-Resistant Enterococci: No Human Immunodeficiency Virus (HIV): No Chicken Pox: Yes Measles: Yes Mumps: Yes Rubella (Thai Measles): No Pertussis: No Klebsiella Pneumoniae Carbapenemase Producing Bacteria: No Clostridium Difficile: No Hepatitis A: No Hepatitis B: No Hepatitis C: No Communicable Disease: No Cancer: No Lung Cancer: No Surgical History Angioplasty: No Appendectomy: No Bariatric Surgery: No Breast Surgery: No Cancer Surgery: No Carotid Endarterectomy: No Cholecystectomy: No Colectomy: No Colostomy: No Coronary Artery Bypass Graft: No Valve Replacement: No Herniorrhaphy: No Total Hip Replacement: Yes (LEFT HIP) Pacemaker: No Sinus Surgery: No Splenectomy: No Thyroidectomy: No Ureter Stent: No Subjective Visit Visit for: follow up visit Immunization / Flu Flu Vaccine in the Last 12 Months: No Flu Vaccine Exclusion Criteria: No Exclusion Criteria History of Present Illness Chief complaint: Left hip pain Tran is 1 year out from a total hip replacement on the left for AVN. He is doing well and he has minimal pain. He is very happy with his progress Personal History Occupation: UNEMPLOYED Red flag PMH: none BMI Counceling provided: No Pain Pain level (0-10): 0 Ambulatory data Ambulatory device: none Treatments Improvement with previous injections: No Improvement with PT: No Improvement with NSAIDS: no Review of Systems Review of Systems: All systems negative unless otherwise noted in HPI.
== END 2025-02-13 15:01 | disposition home or self-care (01) ==
LOC: HODSRG 14:47
PROVIDERS: Supervising Provider Orthopaedic Surgery Adult Reconstructive Orthopaedic Surgery; Visit Provider Orthopaedic Surgery Adult Reconstructive Orthopaedic Surgery
DX: M25.552 Pain in left hip (principal); M87.88 Other osteonecrosis, other site; Z96.642 Presence of left artificial hip joint; I10 Essential (primary) hypertension; E11.9 Type 2 diabetes mellitus without complications
CPT/HCPCS: 99213; G0463